=== PATIENT | female | born 1950 | race Caucasian/White ===

== ENCOUNTER 2016-08-27 10:55 | Outpatient (CLI) | payer MEDICARE ==
[2016-08-27 12:48] LABS: #Basophils 0.1 thou/uL (0.0-0.2); #Eosinphils 0.3 thou/uL (0.0-0.7); #Lymphocytes 2.1 thou/uL (1.20-3.40); #Monocytes 0.4 thou/uL (0.11-0.59); #Neutrophils 4.5 thou/uL (1.40-6.50); %Basophils 0.9 % (0.0-1.0); %Monocytes 5.9 % (0.0-10.0); Hematocrit 51.5 % (36.0-47.0); Mean Platelet Volume 7.7 fL (7.4-10.4); Red Blood Cell (RBC) Count 5.86 mill/uL (4.20-5.40); White Blood Cell (WBC) Count 7.4 thou/uL (4.8-10.8)
[2016-08-27 13:03] LABS: ALT (SGPT) 13 U/L (0-55); AST (SGOT) 13 U/L (5-34); Alkaline Phosphatase 69 U/L (40-150); Anion Gap 13 mmol/L (10-20); BUN (Urea Nitrogen) 15 mg/dL (9.8-20.1); Bilirubin, Total 0.5 mg/dL (0.2-1.2); Calc. Creatinine Clearance 0 mL/min (70-130); Calcium 9.3 mg/dL (7.8-10.44); Carbon Dioxide 27 mmol/L (23-31); Chloride 108 mmol/L (98-107); Estimated GFR-MDRD 72; Globulin 2.9 g/dL (2.4-3.5); LDL Cholesterol, Calculated 132 mg/dL; Protein, Total 7.2 g/dL (5.8-8.1)
== END 2016-08-27 10:56 | disposition home or self-care (01) ==
LOC: HPCALD 10:55
PROVIDERS: ATTEND Physician Assistant
DX: I10 Essential (primary) hypertension (principal); R53.83 Other fatigue
CPT/HCPCS: 36415; 80053; 80061; 84443; 85025

== ENCOUNTER 2017-03-20 14:03 | Outpatient (CLI) | payer MEDICARE ==
[2017-03-20 14:33] LABS: #Basophils 0.1 thou/uL (0.0-0.2); #Eosinphils 0.3 thou/uL (0.0-0.7); #Lymphocytes 2.6 thou/uL (1.20-3.40); #Monocytes 0.5 thou/uL (0.11-0.59); #Neutrophils 5.2 thou/uL (1.40-6.50); %Basophils 0.7 % (0.0-1.0); %Eosinophils 3.2 % (0.0-10.0); %Lymphocytes 30.1 % (21.0-51.0); %Monocytes 5.8 % (0.0-10.0); %Neutrophils 60.3 % (42.0-75.0); Hemoglobin 16.5 g/dL (12.0-16.0); Mean Corpuscular HGB CONC 31.5 g/dL (32.0-36.0); Mean Corpuscular Hemoglobin 27.6 pg (27.0-31.0); Mean Corpuscular Volume 87.7 fl (81.0-99.0); Mean Platelet Volume 8.9 fL (7.4-10.4); Platelet Count 178 thou/uL (130-400); RBC Distribution Width 13.6 % (11.5-14.5); Red Blood Cell (RBC) Count 5.96 mill/uL (4.20-5.40); White Blood Cell (WBC) Count 8.7 thou/uL (4.8-10.8)
[2017-03-20 14:56] LABS: ALT (SGPT) 15 U/L (8-55); AST (SGOT) 12 U/L (5-34); Albumin 4.5 g/dL (3.4-4.8); Alkaline Phosphatase 77 U/L (40-150); Anion Gap 12 mmol/L (10-20); BUN (Urea Nitrogen) 13 mg/dL (9.8-20.1); Bilirubin, Total 0.5 mg/dL (0.2-1.2); Calc. Creatinine Clearance 0 mL/min (70-130); Calcium 9.6 mg/dL (7.8-10.44); Carbon Dioxide 30 mmol/L (23-31); Chloride 104 mmol/L (98-107); Estimated GFR-MDRD 75; Globulin 3.1 g/dL (2.4-3.5); Glucose 81 mg/dL (80-115); Lipase 22 U/L (8-78); Potassium 4.5 mmol/L (3.5-5.1); Protein, Total 7.6 g/dL (6.0-8.3); Sodium 141 mmol/L (136-145)
== END 2017-03-20 14:04 | disposition home or self-care (01) ==
LOC: HPCALD 14:03
PROVIDERS: ATTEND Physician Assistant
DX: R10.84 Generalized abdominal pain (principal)
CPT/HCPCS: 36415; 80053; 83690; 85025

== ENCOUNTER 2017-06-28 13:51 | Emergency (ER) | payer MEDICARE | END 2017-06-28 14:35 | disposition home or self-care (01) | LOC: BURERS 13:51 | DX: L25.3 Unspecified contact dermatitis due to other chemical products (principal); I10 Essential (primary) hypertension; J45.909 Unspecified asthma, uncomplicated; Z79.899 Other long term (current) drug therapy | CPT/HCPCS: 99282 ==

== ENCOUNTER 2018-03-12 08:55 | Outpatient (CLI) | payer MEDICARE ==
--- NOTE | 2018-03-12 13:29 | RAD ---
CERVICAL SPINE THREE VIEWS: Date: 03-12-18 FINDINGS: No fracture or dislocation was seen. There is slight disc space narrowing at C6-7. Osteophytes are pr ominent at C4 and below. The C1-2 dens distance is normal and the soft tissues are normal in thicknes s. 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 Cross-sectional imaging wo uld be helpful to determine any neural impingement. Incidentally noted was carotid artery calcificat ion on the left. IMPRESSION: Moderately severe degenerative changes of the cervical spine. POS: [facility]
== END 2018-03-12 08:56 | disposition home or self-care (01) ==
LOC: BURRAD 08:55
PROVIDERS: ATTEND Physician Assistant
DX: M47.812 Spondylosis without myelopathy or radiculopathy, cervical region (principal)
CPT/HCPCS: 72040

== ENCOUNTER 2019-07-06 08:30 | Emergency (ER) | payer MEDICARE ==
[2019-07-06] MEDS ORDERED: Adenosine 6 MG/2 ML VIAL ONE (09:06)
--- NOTE | 2019-07-06 09:11 | RAD ---
XR Chest 1 View Portable HISTORY: Tachycardia COMPARISON: 09/30/2013 FINDINGS: The heart size is normal. The lungs are well expanded without focal areas of consolidation, pneumothorax or pleural effusions. IMPRESSION: No radiographic evidence of acute cardiopulmonary process.
[2019-07-06 09:27] LABS: #Basophils 0.1 thou/uL (0.0-0.2); #Eosinphils 0.3 thou/uL (0.0-0.7); #Lymphocytes 2.4 thou/uL (1.20-3.40); #Monocytes 0.6 thou/uL (0.11-0.59); #Neutrophils 6.4 thou/uL (1.40-6.50); %Basophils 1.3 % (0.0-1.0); %Eosinophils 2.9 % (0.0-10.0); %Lymphocytes 24.3 % (21.0-51.0); %Monocytes 6.4 % (0.0-10.0); ALT (SGPT) 17 U/L (8-55); Albumin 4.3 g/dL (3.4-4.8); Alkaline Phosphatase 76 U/L (40-110); Anion Gap 20 mmol/L (10-20); BUN (Urea Nitrogen) 19 mg/dL (9.8-20.1); Bilirubin, Total 0.3 mg/dL (0.2-1.2); Calc. Creatinine Clearance 0 mL/min (70-130); Calcium 9.8 mg/dL (7.8-10.44); Carbon Dioxide 19 mmol/L (23-31); Chloride 106 mmol/L (98-107); Estimated GFR-MDRD 66; Globulin 3.7 g/dL (2.4-3.5); Glucose 127 mg/dL (80-115); Hemoglobin 16.4 g/dL (12.0-16.0); Mean Corpuscular HGB CONC 31.5 g/dL (32.0-36.0); Mean Corpuscular Hemoglobin 27.1 pg (27.0-31.0); Mean Corpuscular Volume 85.9 fL (78.0-98.0); Mean Platelet Volume 9.6 fL (7.4-10.4); Platelet Count 167 thou/uL (130-400); Potassium 4.9 mmol/L (3.5-5.1); RBC Distribution Width 14.5 % (11.5-14.5); Red Blood Cell (RBC) Count 6.07 mill/uL (4.20-5.40); Sodium 140 mmol/L (136-145); White Blood Cell (WBC) Count 9.8 thou/uL (4.8-10.8)
[2019-07-06 09:29] LABS: AST (SGOT) 20 U/L (5-34)
[2019-07-06] MEDS ORDERED: Aspirin Chewable 81 MG TAB ONE (09:33)
[2019-07-06] MEDS ORDERED: predniSONE 20 MG TAB ONE (10:32)
== END 2019-07-06 10:48 | disposition home or self-care (01) ==
LOC: BURERS 08:30
DX: I47.1 Supraventricular tachycardia (principal); J45.909 Unspecified asthma, uncomplicated; I10 Essential (primary) hypertension
CPT/HCPCS: 71045; 80053; 83880; 84443; 84484; 85025; 85379; 93005; 94760; 96361; 96374; J0153; J7512

== ENCOUNTER 2020-03-21 07:45 | Emergency (ER) | payer MEDICARE ==
[2020-03-21] MEDS ORDERED: Fentanyl 100 MCG/2 ML VIAL ONE ×2 (08:04→08:08)
[2020-03-21] MEDS ORDERED: Midazolam HCl 2 mg/2 ml Vial ONE ×3 (08:05→08:13)
[2020-03-21] MEDS ORDERED: Aspirin Chewable 81 MG TAB ONE (08:09)
[2020-03-21] MEDS ORDERED: Amiodarone 150 MG/3 ML VIAL ONE (08:14)
[2020-03-21] MEDS ORDERED: Metoprolol Tartrate 5 MG/5 ML VIAL ONE (08:19)
[2020-03-21 08:28] LABS: Prothrombin Time 12.8 sec (12.0-14.7)
[2020-03-21 08:31] LABS: Hemoglobin 16.4 g/dL (12.0-16.0); Mean Corpuscular HGB CONC 29.6 g/dL (32.0-36.0); Mean Corpuscular Hemoglobin 27.1 pg (27.0-31.0); Mean Corpuscular Volume 91.4 fL (78.0-98.0); Mean Platelet Volume 10.4 fL (7.4-10.4); Platelet Count 185 thou/uL (130-400); RBC Distribution Width 13.8 % (11.5-14.5); Red Blood Cell (RBC) Count 6.06 mill/uL (4.20-5.40); White Blood Cell (WBC) Count 10.7 thou/uL (4.8-10.8)
[2020-03-21 08:38] LABS: ALT (SGPT) 15 U/L (8-55); AST (SGOT) 13 U/L (5-34); Albumin 4.4 g/dL (3.4-4.8); Alkaline Phosphatase 70 U/L (40-110); Anion Gap 19 mmol/L (10-20); BUN (Urea Nitrogen) 21 mg/dL (9.8-20.1); Bilirubin, Total 0.6 mg/dL (0.2-1.2); Calc. Creatinine Clearance 0 mL/min (70-130); Calcium 9.3 mg/dL (7.8-10.44); Carbon Dioxide 23 mmol/L (23-31); Chloride 103 mmol/L (98-107); Estimated GFR-MDRD 63; Globulin 3.2 g/dL (2.4-3.5); Glucose 168 mg/dL (83-110); Potassium 4.6 mmol/L (3.5-5.1); Protein, Total 7.6 g/dL (6.0-8.3); Sodium 140 mmol/L (136-145)
[2020-03-21 08:41] LABS: #Basophils 0.1 thou/uL (0.0-0.2); #Eosinphils 0.3 thou/uL (0.0-0.7); #Lymphocytes 2.9 thou/uL (1.20-3.40); #Monocytes 0.8 thou/uL (0.11-0.59); #Neutrophils 6.7 thou/uL (1.40-6.50); %Basophils 1.1 % (0.0-1.0); %Eosinophils 2.7 % (0.0-10.0); %Lymphocytes 26.7 % (21.0-51.0); %Monocytes 7.2 % (0.0-10.0); %Neutrophils 62.3 % (42.0-75.0); Platelet Morphology Comment Appears Adequate
[2020-03-21] MEDS ORDERED: Enoxaparin Sodium 100 MG/ML SYRINGE ONE (08:55)
--- NOTE | 2020-03-21 16:20 | RAD ---
PORTABLE CHEST: 03/21/20 An AP portable film at 0822 is compared with a 07/06/19 study. There is no lobar infiltrate or effusion. Comparing with the older study, one might argue for a sligh t prominence of the vasculature in the upper lobes. There is no overt edema or large pleural effusion . Haziness near the cardiac apex seems no different than before. The cardiac size is normal. IMPRESSION: At most, minor prominence of the vasculature which may or may not be significant. POS: HOME
== END 2020-03-21 10:23 | disposition short-term general hospital (02) ==
LOC: BURERS 07:45
DX: I47.1 Supraventricular tachycardia (principal); I10 Essential (primary) hypertension; J45.909 Unspecified asthma, uncomplicated; Z79.82 Long term (current) use of aspirin; Z79.51 Long term (current) use of inhaled steroids; Z79.899 Other long term (current) drug therapy
CPT/HCPCS: 71045; 80053; 84443; 84484; 85025; 85610; 93005; 96361; 96372; 96374; J0282; J1650; J2250; J3010

== ENCOUNTER 2020-07-02 12:34 | Emergency (ER) | payer MEDICARE ==
[2020-07-02] MEDS ORDERED: Lidocaine 1% w/Epinephrine 1:100K 20 ML VIAL ONE (13:08)
[2020-07-02] MEDS ORDERED: Bacitracin 1 PK ONE ×2 (13:11→15:12)
[2020-07-02] MEDS ORDERED: Boostrix 0.5 ML (Tdap) VIAL ONE (13:12)
[2020-07-02] MEDS ORDERED: TETANUS, DIPHTHERIA TOX,ADULT (TDVAX) 0.5 ML VIAL IM ONE (13:29)
[2020-07-02] MEDS ORDERED: Cephalexin 250 MG CAP ONE (15:12)
--- NOTE | 2020-07-02 17:43 | RAD ---
PORTABLE CHEST: Date: 07-02-2020 An AP portable film at 1331 is compared with the 03-21-2020 study. FINDINGS: The heart is normal in size. The lungs are clear except for some minor left basilar streaking. This w as present before so is presumed to be scarring. No new infiltrates were seen. There were no large ef fusions, signs of pneumothorax, or mediastinal widening. The cardiac size is normal. No acute fractur es were demonstrated. IMPRESSION: No acute finding. POS: HOME
--- NOTE | 2020-07-02 17:51 | RAD ---
LEFT FOREARM TWO VIEWS: Date: 07-02-2020 FINDINGS: The radius and ulna appear intact with no signs of acute fracture. Some soft tissue swelling is seen on the dorsal part of the mid forearm without any signs of fracture of the underlying bone. What I ca n see of the carpal bones appears intact. A soft tissue calcification is seen just medial to the ulna r styloid. Deformity at the base of the first metacarpal along with degenerative change here suggests old trauma at this location, and possibly disruption of the first carpal metacarpal joint. IMPRESSION: Chronic changes but no acute finding. POS: HOME
== END 2020-07-02 15:17 | disposition home or self-care (01) ==
LOC: BURERS 12:34
DX: S01.81XA Laceration without foreign body of other part of head, initial encounter (principal); S20.212A Contusion of left front wall of thorax, initial encounter; I10 Essential (primary) hypertension; J45.909 Unspecified asthma, uncomplicated; F17.210 Nicotine dependence, cigarettes, uncomplicated; Z79.82 Long term (current) use of aspirin; Z79.899 Other long term (current) drug therapy; W01.118A Fall on same level from slipping, tripping and stumbling with subsequent striking against other sharp object, initial encounter
CPT/HCPCS: 12032; 71045; 90471; 90714; 90715

== ENCOUNTER 2020-12-06 15:59 | Outpatient (CLI) | payer MEDICARE | END 2020-12-06 16:00 | disposition home or self-care (01) | LOC: BURRAD 15:59 | PROVIDERS: ATTEND Physician Assistant | DX: R05 Cough (principal); R06.2 Wheezing; R50.81 Fever presenting with conditions classified elsewhere | CPT/HCPCS: 71046 ==